=== PATIENT | female | born 1970 | race African-American/Black ===

== ENCOUNTER 2016-07-27 16:30 | Emergency (ER) | payer OTHER ==
[~2016-07-27] VITALS: Ht 162.6 cm; Wt 100.8 kg
[~2016-07-27 16:30] MED LIST: CIPRO500 MG PO; COUMADIN5 MG PO; DEPAKOTE500 MG PO; DESYREL 150 MG150 MG PO; DICYCLOMINE HCL20 MG PO; DOXYCYCLINE HY100 MG PO; ENDOCET 5-3251 EACH PO; FLAGYL 375 MG375 MG PO; FLAGYL500 MG PO; LOVENOX120 MG/0.8 SC; NAPROSYN500 MG PO; PERCOCET 5/31 TABLET PO; PREDNISONE20 MG PO; PREDNISONE50 MG PO; PROVENTIL,2.5 MG/0.5 IH; PROVENTIL,2.5 MG/3 M IH; RISPERDAL25 MG/2 ML IM; RISPERDAL3 MG PO; SEROQUEL XR400 MG PO; SEROQUEL400 MG PO; TRAMADOL HCL50 MG PO; VENTOLIN HFA18 GM IH; XARELTO15 MG PO; XARELTO20 MG PO; ZOFRAN4 MG PO
[2016-07-27 17:39] LABS: HEMATOCRIT 36.9 % (36.0-46.0); MCH 27.9 PG (29.0-34.0); MCHC 32.2 G/DL (30.0-36.0); MCV 86.4 FL (83-99); MEAN PLAT.VOLUME 10.8 uM^3 (9.5-12.4); PLATELET COUNT 397 K/uL (156-360); RBC DIS.WIDTH-CV 15.1 % (11.8-14.6); RBC DIS.WIDTH-SD 47.1 % (39-53); RED BLOOD COUNT 4.27 M/uL (3.80-5.20); WHITE BLOOD COUNT 8.5 K/uL (4.1-10.2)
[2016-07-27 17:48] LABS: CHLORIDE 110 mEq/L (99-109); POTASSIUM 3.9 mEq/L (3.7-5.4); SODIUM 142 mEq/L (136-147)
[2016-07-27 17:50] LABS: GLUCOSE 91 mg/dL (70-99)
[2016-07-27 17:51] LABS: ANION GAP 11 MEQ/L (2-14)
[2016-07-27 17:53] LABS: SERUM ETHYL ALCOHOL < 10 mg/dL
[2016-07-27 17:54] LABS: GFR ESTIMATE (CALCULATED) > 59 mL/min/
[2016-07-27 17:55] LABS: UREA NITROGEN (BUN) 13 mg/dL (9-23)
[2016-07-27 19:27] LABS: AMPHETAMINE NEGATIVE (500 ng/mL); BARBITURATES NEGATIVE (200 ng/mL); BENZODIAZEPINES NEGATIVE (150 ng/mL); COCAINE PRESUMPTIVE POSITIVE (150 ng/mL); INTERNAL CONTROLS VALID? YES; METHADONE NEGATIVE (200 ng/mL); METHAMPHETAMINE NEGATIVE (500 ng/mL); OPIATES (MORPHINE) NEGATIVE (100 ng/mL); OXYCODONE NEGATIVE (100 ng/mL); PHENCYCLIDINE NEGATIVE (25 ng/mL); PROPOXYPHENE NEGATIVE (300 ng/mL); THC CANNABINOIDS NEGATIVE (50 ng/mL); TRICYCLIC ANTIDEPRESSANTS NEGATIVE (300 ng/mL)
[2016-07-27 19:28] LABS: ADD MEDTOX COMMENT Y
[2016-07-28 01:29] VITALS: BP 132/68
== END 2016-07-28 01:35 ==
LOC: EME 16:30
DX: F20.9 Schizophrenia, unspecified (principal); R45.851 Suicidal ideations; F32.9 Major depressive disorder, single episode, unspecified; F31.2 Bipolar disorder, current episode manic severe with psychotic features; Z91.040 Latex allergy status; Z91.14 Patient's other noncompliance with medication regimen
CPT/HCPCS: 80048; 84999; 85027; 90837; 99281; 99285; G0480

== ENCOUNTER 2016-09-08 11:22 | Emergency (ER) | payer OTHER ==
[~2016-09-08] VITALS: Ht 165.1 cm; Wt 112.4 kg
[2016-09-08 11:53] VITALS: BP 140/101
== END 2016-09-08 15:10 | disposition left against medical advice (07) ==
LOC: EME 11:22
DX: Z91.81 History of falling (principal); Z53.21 Procedure and treatment not carried out due to patient leaving prior to being seen by health care provider

== ENCOUNTER 2016-09-30 11:17 | Emergency (ER) | payer OTHER ==
[~2016-09-30] VITALS: Ht 165.1 cm; Wt 114.8 kg
[2016-09-30 11:56] LABS: HEMATOCRIT 32.9 % (36.0-46.0); MCH 27.4 PG (29.0-34.0); MCHC 31.6 G/DL (30.0-36.0); MCV 86.8 FL (83-99); MEAN PLAT.VOLUME 10.3 uM^3 (9.5-12.4); PLATELET COUNT 384 K/uL (156-360); RBC DIS.WIDTH-CV 14.1 % (11.8-14.6); RBC DIS.WIDTH-SD 44.8 % (39-53); RED BLOOD COUNT 3.79 M/uL (3.80-5.20); WHITE BLOOD COUNT 7.4 K/uL (4.1-10.2)
[2016-09-30 12:41] LABS: ANION GAP 9 MEQ/L (2-14); CHLORIDE 106 MEQ/L (99-109); POTASSIUM 4.1 MEQ/L (3.7-5.4); SAMPLE HEMOLYSIS CHECK 0; SAMPLE ICTERIC CHECK 0; SAMPLE LIPEMIA CHECK 0; SODIUM 141 MEQ/L (136-147); TOTAL BILIRUBIN 0.4 MG/DL (0.0-1.0)
[2016-09-30 12:46] LABS: ALKALINE PHOSPHATASE 102 IU/L (3-129); GFR ESTIMATE (CALCULATED) > 59 mL/min/; GLUCOSE 99 mg/dL (70-99); LIPASE 48 U/L (1.0-51.0); UREA NITROGEN (BUN) 14 mg/dL (9-23)
[2016-09-30 12:50] LABS: QUANTITATIVE HCG < 4.0 MIU/ML
[2016-09-30 13:02] LABS: ADD MIUA? YES; BILIRUBIN NEGATIVE; BLOOD NEGATIVE; COLOR YELLOW ((YELLOW)); GLUCOSE (STRIP) NEGATIVE; KETONES NEGATIVE; LEUKOCYTES NEGATIVE; NITRITE NEGATIVE; PROTEIN (STRIP) 30; SPECIFIC GRAVITY 1.021 (1.000-1.030); UROBILINOGEN 0.2 MG/DL (0.2-1.0)
[2016-09-30 13:13] LABS: BACTERIA RARE /HPF; EPITHELIAL CELLS 4+ /HPF; MUCUS TRACE /LPF; UCUL ADDED? NO; WHITE BLOOD CELLS 0-5 /HPF (0-5)
[2016-09-30 14:20] LABS: D-DIMER ELISA 0.81 mg/L FEU (< 0.57)
[2016-09-30 15:10] LABS: C DIFF TOXIN NEGATIVE (NEGATIVE)
[2016-09-30 15:14] LABS: PROBE CHECK PASS; SPECIMEN PROCESSING CONTROL PASS
[2016-09-30 15:15] LABS: PROTHROMBIN TIME 10.2 (9.2-11.2)
[2016-09-30] MEDS ORDERED: BENTYL10 MG PO (16:39)
[2016-09-30] MEDS ORDERED: ZOFRAN ODT8 MG PO (16:57)
[2016-09-30 17:00] VITALS: BP 130/91
== END 2016-09-30 16:55 | disposition home or self-care (01) ==
LOC: EME 11:17
PROVIDERS: Physician Assistant
DX: R10.9 Unspecified abdominal pain (principal); R11.2 Nausea with vomiting, unspecified; R19.7 Diarrhea, unspecified; R06.00 Dyspnea, unspecified; Z86.711 Personal history of pulmonary embolism; Z79.01 Long term (current) use of anticoagulants
CPT/HCPCS: 71275; 74177; 80053; 81003; 83690; 84702; 85027; 85379; 85610; 87493; 99281; 99284

== ENCOUNTER 2016-10-06 18:03 | Emergency (ER) | payer OTHER ==
[~2016-10-06] VITALS: Ht 165.1 cm; Wt 115.6 kg
[~2016-10-06 18:03] MED LIST changes: +BENTYL10 MG PO; +ZOFRAN ODT8 MG PO
[2016-10-06 18:41] LABS: HEMATOCRIT 32.8 % (36.0-46.0); MCH 27.3 PG (29.0-34.0); MCHC 31.1 G/DL (30.0-36.0); MCV 87.7 FL (83-99); MEAN PLAT.VOLUME 10.3 uM^3 (9.5-12.4); PLATELET COUNT 369 K/uL (156-360); RBC DIS.WIDTH-SD 44.5 % (39-53); RED BLOOD COUNT 3.74 M/uL (3.80-5.20); WHITE BLOOD COUNT 8.1 K/uL (4.1-10.2)
[2016-10-06 18:52] LABS: CHLORIDE 108 mEq/L (99-109); POTASSIUM 3.8 mEq/L (3.7-5.4); SODIUM 141 mEq/L (136-147)
[2016-10-06 18:53] LABS: GLUCOSE 95 mg/dL (70-99)
[2016-10-06 18:55] LABS: ANION GAP 7 MEQ/L (2-14)
[2016-10-06 18:57] LABS: GFR ESTIMATE (CALCULATED) > 59 mL/min/
[2016-10-06 18:58] LABS: UREA NITROGEN (BUN) 16 mg/dL (9-23)
[2016-10-06 19:57] LABS: QUANTITATIVE HCG < 4.0 MIU/ML
[2016-10-06] MEDS ORDERED: VENTOLIN HFA18 GM IH (23:01)
[2016-10-06] MEDS ORDERED: PREDNISONE20 MG PO (23:01)
[2016-10-06] MEDS ORDERED: ZITHROMAX Z-PA250 MG PO (23:01)
[2016-10-06 23:32] VITALS: BP 120/58
== END 2016-10-06 23:35 | disposition home or self-care (01) ==
LOC: EME 18:03
DX: J20.9 Acute bronchitis, unspecified (principal); Z86.711 Personal history of pulmonary embolism; Z86.718 Personal history of other venous thrombosis and embolism; Z79.01 Long term (current) use of anticoagulants; J45.909 Unspecified asthma, uncomplicated
CPT/HCPCS: 71020; 71275; 80048; 84702; 85027; 94640; 99281; 99285; J7030; J7512